=== PATIENT | male | born 1950 | race Caucasian/White ===

== ENCOUNTER 2022-08-24 11:45 | Inpatient (IN) ==
[2022-08-24] MEDS ORDERED: SODIUM CHLORIDE 0.9% 500 ML IV STA (11:58)
[2022-08-24] MEDS ORDERED: fentaNYL citrate PF 100 MCG/2 ML VIAL IV STA (12:00)
[2022-08-24] MEDS ORDERED: ONDANSETRON INJ 2 MG/ML 2 ML VIAL IV STA (12:01)
--- NOTE | 2022-08-24 12:01 | Emergency Department Note ---
Impression & Plan Acute urinary retention, Elevated troponin, BPH loc w urin obs/LUTS ED Provider Note Provider: Sean Caputo MD DATE OF SERVICE: 08/24/2022 CHIEF COMPLAINT: Abdominal pain, urinary symptoms HISTORY OF PRESENT ILLNESS: Patient is a 71-year-old gentleman history of bladder dysfunction, UTI, CVA, heart failure, and hypertension from available records [facility] for reported increased abdominal pain with concerns for UTI. Patient states he is a history of urinary tract infection before and had a prior cholecystectomy. Reports some mild diffuse abdominal pain last several days with some diarrhea and nausea at some point. States he did have some breakfast this morning but not a lot. Denies trauma. Present evidently gave him an IM dose of Rocephin prior to transfer here this morning with concerns for UTI. They report that he had a bit of discharge from the urethra. Patient has been on narcotics by the EMS report and last had a bowel movement yesterday. Patient without reported fever. No testicular complaints reported. PAST MEDICAL HISTORY: As noted above MEDICATIONS: Reviewed medication list available from the present documents at bedside. SOCIAL HISTORY: Inmate at [facility] PHYSICAL EXAM: GENERAL: alert and oriented in no acute distress on stretcher in shackles with cards at bedside Head: normocephalic and atraumatic EYES: No injection, discharge or icterus. NECK: Trachea midline. ENT: Mucous membranes pink and somewhat tacky in appearance LUNGS: Airway patent. No retractions. Breath sounds clear with good air entry bilaterally. HEART: Regular rate and rhythm. No chest wall tenderness ABDOMEN: Soft and mild diffuse tenderness, without guarding or rebound. No bilateral flank tenderness. Well-healed abdominal midline scar noted. SKIN: Acyanotic, warm, dry, without rashes EXTREMITIES: Without swelling, tenderness or deformity except for some old healed scarring towards the right wrist where he states he had a watch injury there previously. Well-healed without signs of infection or erythema. NEUROLOGICAL: No focal deficits. No aphasia. No facial droop or slurred speech although slightly slow to answer at some point. EK beats. Normal sinus rhythm. No PVC or PAC. No acute ST segment elevation but lateral T wave inversions are noted. QTc 455. Compared to previous from April 20, 2022, T wave inversions more pronounced and involve more the lateral leads. CONTINUOUS CARDIAC MONITORING: was ordered and showed a heart rate of 50s-60s bpm in normal sinus rhythm to sinus bradycardia Patient's laboratory studies and imaging reviewed. Differential includes Appendicitis, testicular torsion, infections, diverticulitis, UTI, obstruction, mesenteric ischemia, aortic pathology, inflammatory bowel disease, renal colic, PUD, pancreatitis, biliary pathology, hernia, volvulus, constipation, as well as other pathologies. IMPRESSION/MEDICAL DECISION MAKIN-year-old gentleman reportedly with abdominal pain. Some history of cholecystectomy but unclear of other abdominal surgeries to me. Did receive Rocephin prior to transfer with concerns for UTI and evidently possibly had a bit of urethral discharge. Reports history of UTI. No fever reported or here. Vitals with some hypertension but no tachycardia. Basic blood work obtained. We will complete a CT scan of the abdomen pelvis and given some symptomatic treatment as well as some slight gentle IV hydration cautious in light of his underlying heart failure with 500 mL normal saline. Does not appear septic at this point. Want to exclude underlying or occult intra-abdominal pathology such as kidney stone, obstruction, but lower suspicion for perforation given his rapidly reassuring abdominal exam without severe peritonitis. Blood work without anemia. Leukocytosis high end of normal at 10.5 but not elevated. No signs of significant renal dysfunction. High-sensitivity troponin is moderately elevated at 35.5 elevated compared to previous from April this past year when he was 18.9. Likely a demand situation due to his urinary retention and stress. No evidence of acute hepatitis or pancreatitis and a normal lactate on labs. Negative COVID. CT scan shows bilateral hydronephrosis and a distended bladder concerning for chronic bladder outlet obstruction. Discussed with nursing and Cervantes be placed for retention likely contributing to his pain symptoms. The elevated troponin could possibly demand related to his discomfort and pain but as he is not the best historian and with the change compared to previous discussed with the hospitalist here for further observation . Transient O2 desaturation here while sleeping improved upon repositioning. DIAGNOSIS: Urinary retention/chronic bladder obstruction, elevated troponin DISPOSITION: Hospitalist will evaluate Past Med/Surg History Medical History (Updated 08/24/22 @ 19:43 by Sean Caputo M.D.) BPH loc w urin obs/LUTS CAD (coronary atherosclerotic disease) Dysthymia Essential hypertension History of CVA (cerebrovascular accident) History of heart failure History of SD (myocardial infarction) Mixed hyperlipidemia Social History Smoking Status: Former smoker Feels Safe at Home: Yes Allergies Allergies Allergy/AdvReac Type Severity Reaction Status Date / Time No Known Allergies Allergy Unverified 04/20/22 19:49 Home Meds Home Medications Medication Instructions Recorded Confirmed atorvastatin 80 mg tablet 80 mg PO HS 04/20/22 04/20/22 diltiazem HCl 120 mg 240 mg PO DAILY 04/20/22 04/20/22 capsule,extended release 24 hr donepezil 5 mg tablet 5 mg PO DAILY 04/20/22 04/20/22 finasteride 5 mg tablet 5 mg PO DAILY 04/20/22 04/20/22 hydrochlorothiazide 25 mg tablet 25 mg PO DAILY 04/20/22 04/20/22 isosorbide mononitrate 60 mg 60 mg PO DAILY 04/20/22 04/20/22 tablet,extended release 24 hr lisinopril 20 mg tablet 20 mg PO DAILY 04/20/22 04/20/22 tamsulosin 0.4 mg capsule 0.4 mg PO BID 04/20/22 04/20/22 Results & Data (ED) Vital Signs Vital Signs - 24 hr 08/24/22 11:54 08/24/22 12:07 08/24/22 12:34 Temperature 36.8 C Temperature Source Oral Pulse Rate 75 68 75 Pulse Rate [Left Radial] Pulse Rhythm Regular Regular Pulse Rhythm [Left Radial] Pulse Strength Normal Pulse Strength [Left Radial] Respiratory Rate 19 Respiratory Effort / Characteristics Non-Labored Spontaneous Respiratory Depth Normal Respiratory Pattern Regular Blood Pressure 151/88 H Blood Pressure [Left Arm] Blood Pressure Mean 109 Blood Pressure Mean [Left Arm] Blood Pressure Position Lying Blood Pressure Position [Left Arm] Pulse Oximetry 95 96 Oxygen Delivery Method Room Air Room Air Sepsis Recent Fever Within 48 Hours No Sepsis New/Unexplained Change in Mental Status No Sepsis Action Taken by Nursing No Action Required 08/24/22 12:41 08/24/22 15:51 Temperature Temperature Source Pulse Rate Pulse Rate [Left Radial] 72 63 Pulse Rhythm Pulse Rhythm [Left Radial] Regular Regular Pulse Strength Pulse Strength [Left Radial] Normal Normal Respiratory Rate 19 18 Respiratory Effort / Characteristics Non-Labored Spontaneous Non-Labored Spontaneous Respiratory Depth Normal Normal Respiratory Pattern Regular Regular Blood Pressure Blood Pressure [Left Arm] 154/86 H 193/93 H Blood Pressure Mean Blood Pressure Mean [Left Arm] 108 126 Blood Pressure Position Blood Pressure Position [Left Arm] Lying Lying Pulse Oximetry 92 96 Oxygen Delivery Method Room Air Room Air Sepsis Recent Fever Within 48 Hours Sepsis New/Unexplained Change in Mental Status Sepsis Action Taken by Nursing Laboratory Data 08/24/22 12:29 08/24/22 12:29 Lab Results 08/24/22 08/24/22 08/24/22 Range/Units 12:29 12:29 12:29 WBC 10.56 (4.8-10.8) K/ul RBC 4.57 L (4.70-6.10) M/uL Hgb 14.0 (14.0-18.0) g/dl Hct 40.7 L (42.0-52.0) % MCV 89.1 (80.0-100.0) fL MCH 30.6 (25.0-34.0) pg MCHC 34.4 (32.0-36.0) g/dL RDW Std Deviation 39.5 (36.4-46.3) fL RDW Coeff of Edgard 12.1 (11.5-14.5) % Plt Count 309 (130-400) K/uL MPV 10.0 (9.4-12.4) fL Immature Gran % (Auto) 0.3 % Neut % (Auto) 76.1 % Lymph % (Auto) 15.0 % Mccreary % (Auto) 7.0 % Eos % (Auto) 1.0 % Baso % (Auto) 0.6 % Neut # (Auto) 8.04 H (1.40-6.50) K/uL Lymph # (Auto) 1.58 (1.2-3.4) K/uL Mccreary # (Auto) 0.74 H (0.11-0.59) K/uL Eos # (Auto) 0.11 (0-0.50) K/uL Baso # (Auto) 0.06 (0-0.2) K/uL Immature Gran # (Auto) 0.03 (0.01-0.20) K/uL Sodium 138 (136-145) mmol/L Potassium 3.3 L (3.5-5.1) mmol/L Chloride 105 (98-107) mmol/L Carbon Dioxide 28 (21-32) mmol/L Anion Gap 5 (3-11) BUN 19 (6-23) mg/dl Creatinine 0.88 (0.6-1.4) mg/dl Est Cr Clr Drug Dosing 75.2 ml/min Est GFR ( Amer) 100.2 ml/min Est GFR (Non-Af Amer) 86.4 ml/min BUN/Creatinine Ratio 21.6 H (10-20) Glucose 104 H (70-99(Fasting)) mg/dl Lactate 0.9 (0.4-2.0) mmol/L Calcium 9.1 (8.6-10.3) mg/dl Total Bilirubin 0.8 (0.2-1.0) mg/dl AST 26 (13-39) U/L ALT 18 (7-52) U/L Alkaline Phosphatase 54 (34-104) U/L Troponin I High Sens 35.5 H (0-20) pg/ml Total Protein 6.4 (6.0-8.3) gm/dl Albumin 3.6 (3.4-5.0) gm/dl Globulin 2.8 (2.5-4.0) gm/dl Albumin/Globulin Ratio 1.3 (0.9-2) Lipase 28 (11-82) U/L SARS-CoV-2, RNA, NAAT (NEGATIVE) 08/24/22 Range/Units 12:29 WBC (4.8-10.8) K/ul RBC (4.70-6.10) M/uL Hgb (14.0-18.0) g/dl Hct (42.0-52.0) % MCV (80.0-100.0) fL MCH (25.0-34.0) pg MCHC (32.0-36.0) g/dL RDW Std Deviation (36.4-46.3) fL RDW Coeff of Edgard (11.5-14.5) % Plt Count (130-400) K/uL MPV (9.4-12.4) fL Immature Gran % (Auto) % Neut % (Auto) % Lymph % (Auto) % Mccreary % (Auto) % Eos % (Auto) % Baso % (Auto) % Neut # (Auto) (1.40-6.50) K/uL Lymph # (Auto) (1.2-3.4) K/uL Mccreary # (Auto) (0.11-0.59) K/uL Eos # (Auto) (0-0.50) K/uL Baso # (Auto) (0-0.2) K/uL Immature Gran # (Auto) (0.01-0.20) K/uL Sodium (136-145) mmol/L Potassium (3.5-5.1) mmol/L Chloride (98-107) mmol/L Carbon Dioxide (21-32) mmol/L Anion Gap (3-11) BUN (6-23) mg/dl Creatinine (0.6-1.4) mg/dl Est Cr Clr Drug Dosing ml/min Est GFR ( Amer) ml/min Est GFR (Non-Af Amer) ml/min BUN/Creatinine Ratio (10-20) Glucose (70-99(Fasting)) mg/dl Lactate (0.4-2.0) mmol/L Calcium (8.6-10.3) mg/dl Total Bilirubin (0.2-1.0) mg/dl AST (13-39) U/L ALT (7-52) U/L Alkaline Phosphatase (34-104) U/L Troponin I High Sens (0-20) pg/ml Total Protein (6.0-8.3) gm/dl Albumin (3.4-5.0) gm/dl Globulin (2.5-4.0) gm/dl Albumin/Globulin Ratio (0.9-2) Lipase (11-82) U/L SARS-CoV-2, RNA, NAAT NEGATIVE (NEGATIVE) Administered Medications Discontinued Medications Fentanyl Citrate (Fentanyl Citrate Pf 100 Mcg/2 Ml Vial) 50 mcg IV NOW STA Stop: 08/24/22 12:01 Last Admin: 08/24/22 12:38 Dose: 50 mcg Documented By: MELISSA Hydralazine HCl (Hydralazine Hcl 20 Mg/Ml Vial) 10 mg IV NOW STA Stop: 08/24/22 16:25 Last Admin: 08/24/22 16:38 Dose: 10 mg Documented By: MELISSA Sodium Chloride (Nss) 500 mls @ 999 mls/hr IV .Q31M STA Stop: 08/24/22 12:28 Last Infusion: 08/24/22 13:10 Dose: 0 mls/hr Documented By: Admin: 08/24/22 12:36 Dose: 999 mls/hr Documented By: MELISSA Ioversol (Optiray 350 100ml) 94 ml IV ONCE ONE Stop: 08/24/22 13:27 Last Admin: 08/24/22 13:27 Dose: 94 ml Documented By: BO Ondansetron HCl (Ondansetron Inj 2 Mg/Ml 2 Ml Vial) 4 mg IV NOW STA Stop: 08/24/22 12:02 Last Admin: 08/24/22 12:37 Dose: 4 mg Documented By: MELISSA Imaging Data Radiologist's Impression: Abdomen/Pelvis CT 08/24/22 11:[address] WITH IV CONTRAST CT DOSE: 657.03 mGy.cm HISTORY: abd pain, urinary symptoms TECHNIQUE: Multiaxial CT images of the abdomen and pelvis were performed following the use of intravenous contrast. A dose lowering technique was utilized adhering to the principles of ALARA. COMPARISON STUDY: None. FINDINGS: Mild dependent changes seen within the lung bases. No pneumoperitoneum. No pneumatosis. Mild superior endplate indentation at T12 and L1 likely due to the Schmorl's nodes. No acute fractures identified. There are old, healed bilateral rib fractures. There is a small to moderate pericardial effusion. The heart is mildly enlarged. There is a small hiatus hernia. Small fat-containing bilateral inguinal hernias. Small bilateral hydroceles are noted. A few prominent external iliac and inguinal lymph nodes. There is mild body wall edema. Mild motion artifact. The gallbladder is not identified and likely surgically absent. The liver, spleen, adrenal glands, and pancreas appear unremarkable. No retroperitoneal lymphadenopathy. Moderate calcified plaque within the normal caliber abdominal aorta. There are a few small cysts within the left kidney. There is moderate bilateral hydroureteronephrosis with marked distention of the bladder. Findings are consistent with chronic bladder outlet obstruction likely due to the enlarged prostate gland. The prostate gland measures 6.6 x 6.2 cm. Colonic diverticulosis. No evidence for acute divert iculitis. There is no bowel wall thickening or obstruction. Moderate fecal retention. Normal appendix. IMPRESSION: 1. There is moderate bilateral hydroureteronephrosis with marked distention of the bladder. Findings are consistent with chronic bladder outlet obstruction likely due to the enlarged prostate gland. 2. No bowel wall thickening or obstruction. 3. Colonic diverticulosis. No evidence for acute diverticulitis. 4. Small hiatus hernia. 5. Small to moderate pericardial effusion. 6. Additional findings as described above. ACT 112: Negative or not required by law. Electronically signed by: Bhargav Menendez M.D. 08/24/2022 1:50 PM Discharge Plan Visit Data Chief Complaint: Urinary Symptoms ED Provider: Sean Caputo Discharge Problem: Acute urinary retention, Elevated troponin, BPH loc w urin obs/LUTS Patient Disposition: Admitted As Inpatient Discharge Instructions Interventions: ED Discharge Assessment Last Done: 08/24/22 17:03
[2022-08-24 13:00] LABS: Basophils # (auto) 0.06 K/uL (0-0.2); Basophils % (auto) 0.6 %; Eosinophils # (auto) 0.11 K/uL (0-0.50); Hematocrit (blood only) 40.7 % (42.0-52.0); Immature Granulocytes # (auto) 0.03 K/uL (0.01-0.20); Immature Granulocytes % (auto) 0.3 %; Lymphocytes # (auto) 1.58 K/uL (1.2-3.4); Mean Corpuscular Hemoglobin 30.6 pg (25.0-34.0); Mean Corpuscular Hgb Conc 34.4 g/dL (32.0-36.0); Mean Corpuscular Volume 89.1 fL (80.0-100.0); Monocytes # (auto) 0.74 K/uL (0.11-0.59); Neutrophils # (auto) 8.04 K/uL (1.40-6.50); Neutrophils % (auto) 76.1 %; Platelet Count 309 K/uL (130-400); RDW Coefficient of Variation 12.1 % (11.5-14.5); RDW Standard Deviation 39.5 fL (36.4-46.3); Red Blood Count 4.57 M/uL (4.70-6.10); White Blood Count 10.56 K/ul (4.8-10.8)
[2022-08-24 13:06] LABS: Albumin Globulin Ratio 1.3 (0.9-2); Albumin Level 3.6 gm/dl (3.4-5.0); BUN Creatinine Ratio 21.6 (10-20); Bilirubin,Total 0.8 mg/dl (0.2-1.0); Calcium 9.1 mg/dl (8.6-10.3); Creatinine Clr Calc Pharmacy 75.2 ml/min; Est GFR (African American) 100.2 ml/min; Est GFR (Non-African American) 86.4 ml/min; Globulin 2.8 gm/dl (2.5-4.0); Potassium 3.3 mmol/L (3.5-5.1); Total Protein 6.4 gm/dl (6.0-8.3)
[2022-08-24 13:13] LABS: Troponin I High Sensitivity 35.5 pg/ml (0-20)
[2022-08-24] MEDS ORDERED: OPTIRAY 350 100ml IV ONE (13:26)
--- NOTE | 2022-08-24 13:52 | CT Scan Report ---
ABDOMEN AND PELVIS CT WITH IV CONTRAST CT DOSE: 657.03 mGy.cm HISTORY: abd pain, urinary symptoms TECHNIQUE: Multiaxial CT images of the abdomen and pelvis were performed following the use of intrave nous contrast. A dose lowering technique was utilized adhering to the principles of ALARA. COMPARISON STUDY: None. FINDINGS: Mild dependent changes seen within the lung bases. No pneumoperitoneum. No pneumatosis. Mil d superior endplate indentation at T12 and L1 likely due to the Schmorl's nodes. No acute fractures i dentified. There are old, healed bilateral rib fractures. There is a small to moderate pericardial ef fusion. The heart is mildly enlarged. There is a small hiatus hernia. Small fat-containing bilateral inguinal hernias. Small bilateral hydroceles are noted. A few prominent external iliac and inguinal l ymph nodes. There is mild body wall edema. Mild motion artifact. The gallbladder is not identified an d likely surgically absent. The liver, spleen, adrenal glands, and pancreas appear unremarkable. No r etroperitoneal lymphadenopathy. Moderate calcified plaque within the normal caliber abdominal aorta. There are a few small cysts within the left kidney. There is moderate bilateral hydroureteronephrosis with marked distention of the bladder. Findings are consistent with chronic bladder outlet obstructi on likely due to the enlarged prostate gland. The prostate gland measures 6.6 x 6.2 cm. Colonic diver ticulosis. No evidence for acute diverticulitis. There is no bowel wall thickening or obstruction. Mo derate fecal retention. Normal appendix. IMPRESSION: 1. There is moderate bilateral hydroureteronephrosis with marked distention of the bladder. Findings are consistent with chronic bladder outlet obstruction likely due to the enlarged prostate gland. 2. No bowel wall thickening or obstruction. 3. Colonic diverticulosis. No evidence for acute diverticulitis. 4. Small hiatus hernia. 5. Small to moderate pericardial effusion. 6. Additional findings as described above. ACT 112: Negative or not required by law. Electronically signed by: Bhargav Menendez M.D. 08/24/2022 1:50 PM
[2022-08-24 14:43] LABS: Appearance Urine Clear (Clear); Bacteria Urine Automated Negative (Negative); Bilirubin Urine Negative (Negative); Blood Urine 3+ (Negative); Cast Urine Automated 0 /lpf (0-5); Color Urine Orange; Glucose Urine UA Negative (Negative); Ketones Urine Negative (Negative); Leukocyte Esterase Urine Trace (Negative); Nitrite Urine Negative (Negative); Protein Urine 1+ (Negative); RBC Urine Automated >30 /hpf (0-4); Specific Gravity Urine 1.022 (1.000-1.030); Urobilinogen Urine Negative (Negative); pH Urine 5.5 (4.5-7.5)
--- NOTE | 2022-08-24 14:57 | History & Physical Report ---
Date of Service August 24, 2022 Assessment & Plan Plan Olivier is a 71-year-old male with a history of CVA, heart failure, hypertension who presents with diffuse abdominal pain of several days, decreased appetite, diarrhea, and nausea. CTA/P: Bilateral hydroureteronephrosis with bladder distention, chronic bladder outlet obstruction suspect due to prostatic megaly. Diverticulosis without diverticulitis. No bowel wall thickening or obstruction. Small to moderate pericardial effusion. Chronic bladder outlet obstruction, prostatomegaly No leukocytosis Hemoglobin 14 Creatinine baseline less than 1, creatinine 0.88 on admission Urine contaminated appearing, cath repeat pending - 1.3L out from Cervantes Denies urinary symptoms Chest discomfort High-sensitivity troponin 35.5, 2-hour repeat pending No chest pain History of Present Illness Primary Care Provider: MAYRA Goodwin Allergies Allergy/AdvReac Type Severity Reaction Status Date / Time No Known Allergies Allergy Unverified 04/20/22 19:49 Home Medications Medication Instructions Recorded Confirmed Type atorvastatin 80 mg tablet 80 mg PO HS 04/20/22 04/20/22 History diltiazem HCl 120 mg 240 mg PO DAILY 04/20/22 04/20/22 History capsule,extended release 24 hr donepezil 5 mg tablet 5 mg PO DAILY 04/20/22 04/20/22 History finasteride 5 mg tablet 5 mg PO DAILY 04/20/22 04/20/22 History hydrochlorothiazide 25 mg tablet 25 mg PO DAILY 04/20/22 04/20/22 History isosorbide mononitrate 60 mg 60 mg PO DAILY 04/20/22 04/20/22 History tablet,extended release 24 hr lisinopril 20 mg tablet 20 mg PO DAILY 04/20/22 04/20/22 History tamsulosin 0.4 mg capsule 0.4 mg PO BID 04/20/22 04/20/22 History Past Med/Surg History Social History Smoking Status: Former smoker Feels Safe at Home: Yes Results & Data Results & Data Vital Signs (Past 12 Hours) Vital Signs Temp Pulse Pulse Resp BP BP Pulse Ox 08/24/22 12:41 72 19 154/86 H 92 08/24/22 12:34 75 96 08/24/22 12:07 68 08/24/22 11:54 36.8 C 75 19 151/88 H 95 O2 Del Method 08/24/22 12:41 Room Air 08/24/22 12:34 Room Air 08/24/22 12:07 08/24/22 11:54 Room Air PG Care Time/CCT Total # of Minutes Spent Total Time Spent with Patient: Total time spent is greater than 50% in coordination of care (as documented) at patient's floor/unit and/or counseling patient: Coding Diagnoses
[2022-08-24] MEDS ORDERED: hydrALAZINE HCL 20 MG/ML VIAL IV STA (16:24)
--- NOTE | 2022-08-24 16:27 | History & Physical Report ---
Date of Service August 24, 2022 Assessment & Plan (1) Acute urinary retention: Plan: Acute/unstable due to prostatomegaly - Admit to med/tele - Reina inserted, care qshift - Already on Tamsulosin and Finasteride - Consult urology, appreciate recommendations - No further IVF needed - Reviewed UA - does not appear grossly infected (2) Elevated troponin: Plan: H/o CAD/NH and CHF according to documentation Acute/unstable - Cardiac monitoring - Initial HS trop 35.5, likely demand ischemia in setting of pain and obstruction - Trend trop (stat trop ordered at time of hospitalist assessment as a repeat had not been ordered in ED) - Currently w/o cp or dynamic EKG changes - Add ASA 81mg daily, first dose now - Continue Imdur and Atorvastatin (3) Hypokalemia: Plan: Acute/unstable - Reviewed CMP - potassium 3.3 - Replacement ordered with KCl 40meq po x1 - Repeat chemistry in AM (4) Dementia: Plan: Chronic/stable - Baseline unknown but is in the dementia unit at [facility] - Continue Aricept (5) Essential hypertension: Plan: Chronic/stable - Continue Lisinopril, Cardizem, and Imdur - Currently with an accelerated pressure of 193/93 - Unsure if he took his morning medications - Will give a dose of IV Hydralazine 10mg x1 now Plan Medication reconciliation was not done at the time of hospitalist assessment, however, I did have records from the halfway with a list of his current medications and therefore ordered them separately. Lovenox has been ordered for DVT ppx. AM labs ordered. Above plan of care has been d/w Dr. Mederos who has also seen and evaluated this patient. Further orders will be implemented as warranted. History of Present Illness Chief Complaint: urinary symptoms Primary Care Provider: [facility] Olivier Boston is a 71 yo M inmate at [facility] who was sent in to the ER for evaluation of increased confusion, urinary symptoms, and abdominal distention per paperwork. Per ER staff and accompanying COs patient has been sleepy since receiving a dose of Fentanyl for pain in the ER. In addition, he has a h/o dementia and is a poor historian. Per paperwork that accompanied the patient, he carries a history of HTN, CVA, CAD with h/o NH/HF, dementia, BPH and FROILAN. Documentation indicates that the patient was having complaints of abdominal pain, decreased bowel sounds, discharge from urethra with change in mental status and abdominal distention. He apparently refused labs but was given a dose of IM Rocephin prior to transferring to ED for eval due to concerns for UTI. Upon arrival, he was afebrile and mildly hypertensive in the 150s systolic. CBC did not demonstrate a leukocytosis or shift. Chemistry . He underwent a CT a/p with IV contrast that revealed moderate bilateral hydroureteronephrosis with marked distention of the bladder. Findings are consistent with chronic bladder outlet obstruction likely due to the enlarged prostate gland. Incidentally small to moderate pericardial effusion also noted. A reina was placed that drained over 1.5L of urine. A UA was sent and does not appear overtly infected. A HS trop was obtained which was minimally elevated at 35.5. He was hydrated with 500 cc of IVF and referred for admission to the hospitalist service due to elevated troponin and urinary retention. Allergies Allergy/AdvReac Type Severity Reaction Status Date / Time No Known Allergies Allergy Unverified 04/20/22 19:49 Home Medications Medication Instructions Recorded Confirmed Type atorvastatin 80 mg tablet 80 mg PO HS 04/20/22 04/20/22 History diltiazem HCl 120 mg 240 mg PO DAILY 04/20/22 04/20/22 History capsule,extended release 24 hr donepezil 5 mg tablet 5 mg PO DAILY 04/20/22 04/20/22 History finasteride 5 mg tablet 5 mg PO DAILY 04/20/22 04/20/22 History hydrochlorothiazide 25 mg tablet 25 mg PO DAILY 04/20/22 04/20/22 History isosorbide mononitrate 60 mg 60 mg PO DAILY 04/20/22 04/20/22 History tablet,extended release 24 hr lisinopril 20 mg tablet 20 mg PO DAILY 04/20/22 04/20/22 History tamsulosin 0.4 mg capsule 0.4 mg PO BID 04/20/22 04/20/22 History Past Med/Surg History Medical History (Updated 08/24/22 @ 16:20 by Kori Corona PA-C) BPH loc w urin obs/LUTS CAD (coronary atherosclerotic disease) Dysthymia Essential hypertension History of CVA (cerebrovascular accident) History of heart failure History of NH (myocardial infarction) Mixed hyperlipidemia Social History Smoking Status: Former smoker Feels Safe at Home: Yes Physical Exam Physical Exam: GENERAL: 71 yo WD/WN elderly WM. Somnolent but arousable. Oriented x2. NAD. LUNGS: Clear to auscultation bilaterally. No W/R/R. CARDIOVASCULAR: Regular rate and rhythm. ABDOMEN: Soft, non-tender and non-distended. BS normoactive x 4 quad. : reina in place, currently tubing kinked due to large output after insertion. Urine is light yellow, not cloudy and no gross sediment noted. EXTREMITIES: No edema. Non-tender. Peripheral pulses +2/4. Results & Data Results & Data Vital Signs (Past 12 Hours) Vital Signs Temp Pulse Pulse Resp BP BP Pulse Ox 08/24/22 15:51 63 18 193/93 H 96 08/24/22 12:41 72 19 154/86 H 92 08/24/22 12:34 75 96 08/24/22 12:07 68 08/24/22 11:54 36.8 C 75 19 151/88 H 95 O2 Del Method 08/24/22 15:51 Room Air 08/24/22 12:41 Room Air 08/24/22 12:34 Room Air 08/24/22 12:07 08/24/22 11:54 Room Air Laboratory Results 08/24/22 12:29 08/24/22 12:29 Diagnostic Findings Abdomen/Pelvis CT 08/24/22 11:[address] WITH IV CONTRAST CT DOSE: 657.03 mGy.cm HISTORY: abd pain, urinary symptoms TECHNIQUE: Multiaxial CT images of the abdomen and pelvis were performed following the use of intravenous contrast. A dose lowering technique was utilized adhering to the principles of ALARA. COMPARISON STUDY: None. FINDINGS: Mild dependent changes seen within the lung bases. No pneumoperitoneum. No pneumatosis. Mild superior endplate indentation at T12 and L1 likely due to the Schmorl's nodes. No acute fractures identified. There are old, healed bilateral rib fractures. There is a small to moderate pericardial effusion. The heart is mildly enlarged. There is a small hiatus hernia. Small fat-containing bilateral inguinal hernias. Small bilateral hydroceles are noted. A few prominent external iliac and inguinal lymph nodes. There is mild body wall edema. Mild motion artifact. The gallbladder is not identified and likely surgically absent. The liver, spleen, adrenal glands, and pancreas appear unremarkable. No retroperitoneal lymphadenopathy. Moderate calcified plaque within the normal caliber abdominal aorta. There are a few small cysts within the left kidney. There is moderate bilateral hydroureteronephrosis with marked distention of the bladder. Findings are consistent with chronic bladder outlet obstruction likely due to the enlarged prostate gland. The prostate gland measures 6.6 x 6.2 cm. Colonic diverticulosis. No evidence for acute diverticulitis. There is no bowel wall thickening or obstruction. Moderate fecal retention. Normal appendix. IMPRESSION: 1. There is moderate bilateral hydroureteronephrosis with marked distention of the bladder. Findings are consistent with chronic bladder outlet obstruction likely due to the enlarged prostate gland. 2. No bowel wall thickening or obstruction. 3. Colonic diverticulosis. No evidence for acute diverticulitis. 4. Small hiatus hernia. 5. Small to moderate pericardial effusion. 6. Additional findings as described above. ACT 112: Negative or not required by law. Electronically signed by: Bhargav Menendez M.D. 08/24/2022 1:50 PM Supervising Physician Co-Signing Physician Notes Patient seen and examined, chart reviewed, case discussed with Kori Corona PA-C and I agree with the assessment and plan as above except as otherwise noted Labs and images reviewed Olivier is a 71-year-old male with a history of urinary retention presented with confusion, abdominal distention, abdominal pain. Patient has significant bl adder decompression after Reina placement, c temporarily clamped after 1.5 L to prevent traction injury/bleeding. Patient with significant improvement following this. Suspect troponin is demand, and is minimally elevated. EKG without ischemic changes. Agree with assessment and management above. PG Care Time/CCT Total # of Minutes Spent Total Time Spent with Patient: Total time spent is greater than 50% in coordination of care (as documented) at patient's floor/unit and/or counseling patient: Coding Level of Care Code 80007 INT INP/OBS CARE 3/75MIN Diagnoses Acute urinary retention R33.8 Elevated troponin R77.8 Hypokalemia E87.6 Dementia F03.90 Essential hypertension I10
[2022-08-24] MEDS ORDERED: ONDANSETRON INJ 2 MG/ML 2 ML VIAL IV PRN (18:54)
[2022-08-24] MEDS ORDERED: traMADol HCL 50 MG TABLET PO PRN (18:54)
[2022-08-24] MEDS ORDERED: ACETAMINOPHEN 325 MG TAB PO PRN (18:54)
[2022-08-24] MEDS ORDERED: MAGNESIUM HYDROXIDE SUSP 30 ML UDC PO PRN (18:54)
[2022-08-24] MEDS ORDERED: POLYETHYLENE (MIRALAX) 17 GM PACK PO PRN (18:54)
[2022-08-24] MEDS ORDERED: ALUMINUM/MAGNESIUM SUSP 30 ML UDC PO PRN (18:54)
[2022-08-24] MEDS ORDERED: POTASSIUM CHLORIDE CRTAB 20 MEQ TABCR PO STA (19:13)
[2022-08-24] MEDS: ASPIRIN 81 MG ECTAB PO SCH (19:54)
[2022-08-24] MEDS: TAMSULOSIN HCL 0.4 MG CAP PO SCH (22:47)
--- NOTE | 2022-08-25 06:15 | Electrocardiogram Report ---
Test Reason : Blood Pressure : / mmHG Vent. Rate : 065 BPM Atrial Rate : 065 BPM P-R Int : 146 ms QRS Dur : 084 ms QT Int : 438 ms P-R-T Axes : 058 -15 118 degrees QTc Int : 455 ms Normal sinus rhythm T wave abnormality, consider lateral ischemia Abnormal ECG When compared with ECG of 20-APR-2022 17:21, No significant change was found Confirmed by Royce Bello ([id number]) on 08/25/2022 6:15:01 AM Referred By: [facility] Confirmed By:Royce Bello
[2022-08-25 06:31] LABS: Basophils # (auto) 0.06 K/uL (0-0.2); Basophils % (auto) 0.6 %; Hematocrit (blood only) 37.5 % (42.0-52.0); Immature Granulocytes # (auto) 0.06 K/uL (0.01-0.20); Immature Granulocytes % (auto) 0.6 %; Lymphocytes # (auto) 1.71 K/uL (1.2-3.4); Lymphocytes % (auto) 16.9 %; Mean Corpuscular Hgb Conc 34.7 g/dL (32.0-36.0); Mean Corpuscular Volume 89.5 fL (80.0-100.0); Monocytes # (auto) 0.72 K/uL (0.11-0.59); Monocytes % (auto) 7.1 %; Neutrophils # (auto) 7.45 K/uL (1.40-6.50); Neutrophils % (auto) 73.8 %; Platelet Count 282 K/uL (130-400); RDW Coefficient of Variation 11.9 % (11.5-14.5); Red Blood Count 4.19 M/uL (4.70-6.10)
[2022-08-25 07:00] LABS: BUN Creatinine Ratio 16.4 (10-20); Calcium 8.7 mg/dl (8.6-10.3); Creatinine Clr Calc Pharmacy 83.8 ml/min; Est GFR (African American) 108.2 ml/min; Est GFR (Non-African American) 93.3 ml/min; Magnesium 1.9 mg/dl (1.7-2.4); Potassium 3.3 mmol/L (3.5-5.1)
--- NOTE | 2022-08-25 08:46 | Urology Consultation ---
Date of Consultation August 25, 2022 Assessment & Plan (1) Acute urinary retention: (2) BPH loc w urin obs/LUTS: Plan Acute urinary retention secondary to massive BPH Cervantes catheter now in place Max medications Continue catheter and medications Plan for outpatient follow-up Also had some other issues on arrivalfrom a standpoint he is stable for discharge home and can follow-up as an outpatientwe will defer remainder of the inpatient work-up to the hospitalist team but no interventions planned acutely History of Present Illness Attending Physician: Michael Mederos MD History of Present Illness 71-year-old prisoner who presented secondary to some encephalopathic changes and abdominal distention Cervantes catheter was placed which seemed to substantially improve his overall situation He has had longstanding BPH driven urinary difficulties with a prior prostate intervention 10+ years ago in [place] Also was on finasteride and tamsulosin Reports that he feels much better with the catheter in place Creatinine 0.73 Lactate normal Troponin was borderline elevated with 35 yesterday Repeats pending Denies any chest pain or other acute discomfort He does have some baseline dementia and resides in the dementia unit at [facility] Allergies Allergy/AdvReac Type Severity Reaction Status Date / Time No Known Allergies Allergy Unverified 04/20/22 19:49 Home Medications Medication Instructions Recorded Confirmed Type atorvastatin 80 mg tablet 80 mg PO HS 04/20/22 04/20/22 History diltiazem HCl 120 mg 240 mg PO DAILY 04/20/22 04/20/22 History capsule,extended release 24 hr donepezil 5 mg tablet 5 mg PO DAILY 04/20/22 04/20/22 History finasteride 5 mg tablet 5 mg PO DAILY 04/20/22 04/20/22 History hydrochlorothiazide 25 mg tablet 25 mg PO DAILY 04/20/22 04/20/22 History isosorbide mononitrate 60 mg 60 mg PO DAILY 04/20/22 04/20/22 History tablet,extended release 24 hr lisinopril 20 mg tablet 20 mg PO DAILY 04/20/22 04/20/22 History tamsulosin 0.4 mg capsule 0.4 mg PO BID 04/20/22 04/20/22 History Patient History Medical History (Updated 08/24/22 @ 19:43 by Sean Caputo M.D.) BPH loc w urin obs/LUTS CAD (coronary atherosclerotic disease) Dysthymia Essential hypertension History of CVA (cerebrovascular accident) History of heart failure History of MA (myocardial infarction) Mixed hyperlipidemia Social History Smoking Status: Former smoker Second Hand Exposure: No; Hx Alcohol Use: Yes Alcohol type: beer, wine and hard liquor Hx Substance Use: Yes Last Used Substance: Unknown Preferred Language: Maltese Communication Ability: Effective Nurse [employer] Required: No Beliefs That Will Affect Care: None Current Living Situation: Other Current Living Situation Comment: leti Feels Safe at Home: Yes Assistive Devices: Walker Physical Exam Physical Exam: No apparent distress Seems to be awake and alert Abdomen soft Cervantes catheter draining clear urine No lower extremity edema Afebrile Heart rate [id number] Results & Data Vital Signs (Past 12 Hours) Vital Signs Temp Pulse Pulse Resp BP BP Pulse Ox 08/25/22 08:03 36.7 C 75 19 186/81 H 95 08/25/22 07:28 69 08/25/22 03:26 36.7 C 66 18 190/95 H 96 08/25/22 00:31 75 180/75 H 08/24/22 21:03 68 08/25/22 00:16 67 08/25/22 00:16 08/24/22 23:05 36.7 C 68 18 198/81 H 96 08/24/22 22:48 36.6 C 81 20 179/75 H 94 O2 Del Method 08/25/22 08:03 Room Air 08/25/22 07:28 08/25/22 03:26 Room Air 08/25/22 00:31 08/24/22 21:03 08/25/22 00:16 08/25/22 00:16 Room Air 08/24/22 23:05 Room Air 08/24/22 22:48 Room Air PG Care Time/CCT Total # of Minutes Spent Total Time Spent with Patient: Total time spent is greater than 50% in coordination of care (as documented) at patient's floor/unit and/or counseling patient: Coding Level of Care Code 47736 INT INP/OBS CARE 1/40MIN Diagnoses Acute urinary retention R33.8 BPH loc w urin obs/LUTS N40.1
[2022-08-25] MEDS: hydroCHLOROthiazide 25 MG TAB PO SCH (09:15)
[2022-08-25] MEDS: TAMSULOSIN HCL 0.4 MG CAP PO SCH ×3 (09:17→22:02)
[2022-08-25] MEDS: ATORVASTATIN 40 MG TAB PO SCH (09:18)
[2022-08-25] MEDS: FINASTERIDE 5 MG TAB PO SCH (09:18)
[2022-08-25] MEDS: ASPIRIN 81 MG ECTAB PO SCH (09:18)
[2022-08-25] MEDS: dilTIAZem HCL 240 MG CAPCR PO SCH (09:18)
[2022-08-25] MEDS: lisinopril 20 MG TAB PO SCH (09:18)
[2022-08-25] MEDS: ISOSORBIDE MONO EXTENDED REL 60 MG TABCR PO SCH (09:18)
[2022-08-25] MEDS: ENOXAPARIN INJ 40 MG/0.4 ML SYR SQ SCH (09:19)
[2022-08-25] MEDS: DONEPEZIL HCL 10 MG TAB PO SCH (12:17)
[2022-08-26] MEDS ORDERED: MELATONIN 3 MG TAB PO STA (00:14)
[2022-08-26] MEDS: dilTIAZem HCL 240 MG CAPCR PO SCH (09:35)
[2022-08-26] MEDS: FINASTERIDE 5 MG TAB PO SCH (10:06)
[2022-08-26] MEDS: ISOSORBIDE MONO EXTENDED REL 60 MG TABCR PO SCH (10:06)
[2022-08-26] MEDS: DONEPEZIL HCL 10 MG TAB PO SCH (10:06)
[2022-08-26] MEDS: ENOXAPARIN INJ 40 MG/0.4 ML SYR SQ SCH (10:06)
[2022-08-26] MEDS: ATORVASTATIN 40 MG TAB PO SCH (10:06)
[2022-08-26] MEDS: hydroCHLOROthiazide 25 MG TAB PO SCH (10:06)
[2022-08-26] MEDS: lisinopril 20 MG TAB PO SCH (10:06)
[2022-08-26] MEDS: ASPIRIN 81 MG ECTAB PO SCH (10:06)
[2022-08-26] MEDS: TAMSULOSIN HCL 0.4 MG CAP PO SCH (10:07)
--- NOTE | 2022-08-26 12:03 | Discharge Summary ---
Date of Service August 26, 2022 Admission HPI Per Admitting Provider Olivier Boston is a 71 yo M inmate at [facility] who was sent in to the ER for evaluation of increased confusion, urinary symptoms, and abdominal distention per paperwork. Per ER staff and accompanying COs patient has been sleepy since receiving a dose of Fentanyl for pain in the ER. In addition, he has a h/o dementia and is a poor historian. Per paperwork that accompanied the patient, he carries a history of HTN, CVA, CAD with h/o OR/HF, dementia, BPH and FROILAN. Documentation indicates that the patient was having complaints of abdominal pain, decreased bowel sounds, discharge from urethra with change in mental s tatus and abdominal distention. He apparently refused labs but was given a dose of IM Rocephin prior to transferring to ED for eval due to concerns for UTI. Upon arrival, he was afebrile and mildly hypertensive in the 150s systolic. CBC did not demonstrate a leukocytosis or shift. Chemistry . He underwent a CT a/p with IV contrast that revealed moderate bilateral hydroureteronephrosis with marked distention of the bladder. Findings are consistent with chronic bladder outlet obstruction likely due to the enlarged prostate gland. Incidentally small to moderate pericardial effusion also noted. A erina was placed that drained over 1.5L of urine. A UA was sent and does not appear overtly infected. A HS trop was obtained which was minimally elevated at 35.5. He was hydrated with 500 cc of IVF and referred for admission to the hospitalist service due to elevated troponin and urinary retention. Principal Diagnosis 1. Acute urinary retention secondary to BPH 2. Hypokalemia-treated/resolved 3. Elevated troponin secondary to myocardial demand ischemia Discharge Exam GENERAL: 71 yo WD/WN elderly WM. Awake. Oriented x2. NAD. LUNGS: Clear to auscultation bilaterally. No W/R/R. CARDIOVASCULAR: Regular rate and rhythm. ABDOMEN: Soft, non-tender and non-distended. BS normoactive x 4 quad. : reina in place, urine is light yellow, not cloudy and no gross sediment noted. EXTREMITIES: No edema. Non-tender. Peripheral pulses +2/4. Discharge Data Allergies Allergy/AdvReac Type Severity Reaction Status Date / Time No Known Allergies Allergy Unverified 04/20/22 19:49 Consultations 08/24/22 15:10 ED Decision to Admit Stat 08/24/22 18:54 Consult Urology Routine Ordered Studies Abdomen/Pelvis CT 08/24/22 11:[address] WITH IV CONTRAST CT DOSE: 657.03 mGy.cm HISTORY: abd pain, urinary symptoms TECHNIQUE: Multiaxial CT images of the abdomen and pelvis were performed following the use of intravenous contrast. A dose lowering technique was utilized adhering to the principles of ALARA. COMPARISON STUDY: None. FINDINGS: Mild dependent changes seen within the lung bases. No pneumoperitoneum. No pneumatosis. Mild superior endplate indentation at T12 and L1 likely due to the Schmorl's nodes. No acute fractures identified. There are old, healed bilateral rib fractures. There is a small to moderate pericardial effusion. The heart is mildly enlarged. There is a small hiatus hernia. Small fat-containing bilateral inguinal hernias. Small bilateral hydroceles are noted. A few prominent external iliac and inguinal lymph nodes. There is mild body wall edema. Mild motion artifact. The gallbladder is not identified and likely surgically absent. The liver, spleen, adrenal glands, and pancreas appear unremarkable. No retroperitoneal lymphadenopathy. Moderate calcified plaque within the normal caliber abdominal aorta. There are a few small cysts within the left kidney. There is moderate bilateral hydroureteronephrosis with marked distention of the bladder. Findings are consistent with chronic bladder outlet obstruction likely due to the enlarged prostate gland. The prostate gland measures 6.6 x 6.2 cm. Colonic diverticulosis. No evidence for acute diverticulitis. There is no bowel wall thickening or obstruction. Moderate fecal retention. Normal appendix. IMPRESSION: 1. There is moderate bilateral hydroureteronephrosis with marked distention of the bladder. Findings are consistent with chronic bladder outlet obstruction likely due to the enlarged prostate gland. 2. No bowel wall thickening or obstruction. 3. Colonic diverticulosis. No evidence for acute diverticulitis. 4. Small hiatus hernia. 5. Small to moderate pericardial effusion. 6. Additional findings as described above. ACT 112: Negative or not required by law. Electronically signed by: Bhargav Menendez M.D. 08/24/2022 1:50 PM Hospital Course (1) Acute urinary retention: due to prostatomegaly - Admitted to med/tele due to mildly bumped trop - Reina inserted, care qshift, massive output upon initial insertion - Already on Tamsulosin and Finasteride (continued) - Consult urology, appreciate recommendations - advised maintaining catheter and f/u as outpatient - No further IVF needed/given - Reviewed UA - does not appear grossly infected, no abx given (2) Elevated troponin: H/o CAD/OR and CHF according to documentation - Cardiac monitoring - Initial HS trop 35.5, likely demand ischemia in setting of pain and obstruction, repeat lower at 34.3 - Currently w/o cp or dynamic EKG changes - Added ASA 81mg daily - Continue Imdur and Atorvastatin (3) Hypokalemia: - Reviewed CMP - potassium 3.3 on admit - Replacement ordered with KCl 40meq po x1 - Repeat chemistry on 08/25, K+ unchanged at 3.3 - Additional dose of KCl 40meq pox 1 given (4) Dementia: Chronic/stable - Baseline unknown but is in the dementia unit at [facility] - Continue Aricept (5) Essential hypertension: Chronic/stable - Continue Lisinopril, Cardizem, and Imdur - Currently with an accelerated pressure of 193/93 - Unsure if he took his morning medications - was give a dose of IV Hydralazine 10mg x1 now - BP controlled/stable today at 132/73 Plan Patient is medically and hemodynamically stable for discharge back to [facility]. Report given to residential. Will f/u with urology and maintain reina until appointment. Above plan of care has been d/w Dr. Lawson who is in agreement with aforementioned. Total Time Total Time Spent Total Time Spent (In Minutes): >30 minutes Discharge Plan Discharge Items [facility]position[facility] Reason For Visit: OBSTRUCTIVE UROPATHY, ELEVATED TROP Discharge Diagnosis: bph causing bladder outlet obstruction elevated troponin, acs ruled out Activity: Resume your previous activity Non-emergency contact: Primary Care Provider and Urologist Call non-emergency contact if: you have any medication questions and your symptoms worsen Follow-up/Referrals: [facility] [Primary Care Provider] - Diet: Regular Addtl Attending Provider Instructions: You were placed in the hospital due to your enlarged prostate now allowing urine to drain properly. You had a catheter placed in the ER and were seen by urology. You will follow up with them in the office and maintain a catheter until that time. You will continue on your prostate medications (Finasteride and Tamsulosin). You were noted to have an elevated heart marker called troponin; however, we can see this elevation in times of excess stress on the body due to medical issues. This is likely the cause of your elevated number. You are being discharged back to [facility] and will follow up with urology as an outpatient. Pending Studies at Discharge: No Stand-Alone Forms: [facility] Skilled Items Patient informed of condition?: Yes Discharge Level of Care: Other Communicable Disease: No Discharge Prognosis: Stable Lines: None Urinary Catheter: Yes Medications and DC Order Prescriptions: New aspirin 81 mg Tablet,Delayed Release (Dr/Ec) 81 mg PO DAILY Qty: 30 0RF Continued atorvastatin 80 mg Tablet 80 mg PO HS donepezil 5 mg Tablet 5 mg PO DAILY lisinopril 20 mg Tablet 20 mg PO DAILY isosorbide mononitrate 60 mg Tablet Extended Release 24 Hr 60 mg PO DAILY tamsulosin 0.4 mg Capsule 0.4 mg PO BID diltiazem HCl 120 mg Capsule,Extended Release 24hr 240 mg PO DAILY Rx Instructions: take 2 caps hydrochlorothiazide 25 mg Tablet 25 mg PO DAILY finasteride 5 mg Tablet 5 mg PO DAILY Discharge Orders: Discharge Order (Routine); Ordered 08/26/22 Ordered By: Kori Corona Admission Data Admit Date/Time: 08/24/22 16:00 Attending Provider: Herman Lawson Admit Provider: Michael Mederos Primary Care Provider: [facility] Other Providers: Michael Mederos ; Adithya Hoffman Coding Level of Care Code 20038 INP/OBS DISCH >30 MIN Diagnoses Acute urinary retention R33.8 Elevated troponin R77.8 Hypokalemia E87.6 Dementia F03.90 Essential hypertension I10
[2022-08-26] MEDS ORDERED: POTASSIUM CHLORIDE CRTAB 20 MEQ TABCR PO STA (12:15)
== END 2022-08-26 14:55 | DRG 726 ==
LOC: ED 11:45 → INTOOBSV 16:00 → EDINP 16:00 → OBSVTOIN 16:00 → SUATTDRO 16:00 → 2W 20:29